=== PATIENT | female | born 1945 | race Two or more races ===

== ENCOUNTER 2017-07-30 10:57 | Emergency (ER) | payer OTHER ==
[2017-07-30 11:06] VITALS: TEMP 98.6
--- NOTE | 2017-07-30 11:15 | CPEKG ---
Heart Rate: 82 RR Interval: 732 P-R Interval: 108 QRSD Interval: 72 QT Interval: 376 QTC Interval: 439 P [place]: 55 QRS [place]: 13 T Wave [place]: 43 EKG Severity - BORDERLINE ECG - EKG Impression: SINUS RHYTHM Electronically Signed By: Ketan Waggoner 30-Jul-2017 15:22:46
[2017-07-30 13:42] VITALS: RESP 18
--- NOTE | 2017-07-30 13:46 | EDPHY ---
H & P Stated Complaint: fell walking/did not have her oxygen on/inj r knee/lac to lip Source: Patient Exam Limitations: No limitations - Personal History Current Tetanus/Diphtheria Vaccine: Unsure - Medical/Surgical History Hx Asthma: No Hx Chronic Respiratory Disease: No Hx Diabetes: No Hx Cardiac Disease: No Hx Renal Disease: No Hx Cirrhosis: No Hx Alcoholism: No Hx HIV/AIDS: No Hx Splenectomy or Spleen Trauma: No Other PMH: hx pneumonia, L hip replacement/shogrens - Social History Smoking Status: Never smoked Time Seen by Provider: 07/30/17 11:22 HPI/ROS: CHIEF COMPLAINT: Mechanical fall, lip laceration, left hand pain HISTORY OF PRESENT ILLNESS: The patient presents to the ED after mechanical fall. She fell forward and sustained a laceration above her upper lip. She complains of moderate pain and swelling to her left hand. The patient did not lose consciousness. She has no complaints of headache or neck pain. The patient denies chest pain, shortness of breath, abdominal pain or additional traumatic complaints. The patient has mild pain in her upper lip. She was wearing dentures. The patient denies any recent illness such as fever, cough or congestion. REVIEW OF SYSTEMS: A comprehensive 10 point review of systems is otherwise negative aside from elements mentioned in the history of present illness. (Ketan Waggoner) - Physical Exam Exam: General Appearance: Alert, no distress Head: 1 cm laceration above the upper lip Eyes: Pupils equal, round, reactive ENT, Mouth: No hemotympanum, no oral trauma Neck: Nontender, trachea midline Respiratory: No chest wall tender, subcutaneous air, lungs clear bilaterally Cardiovascular: Regular rate and rhythm Abdomen: Abdomen is soft and nontender, pelvis stable Skin: No lacerations, No abrasion Back: No midline T/L/S pain Extremities: Tenderness to palpation left hand Neurological: A&Ox3, normal motor function, normal sensory exam (Ketan Waggoner) Constitutional: Initial Vital Signs Temperature (C) 37 C 07/30/17 11:02 Heart Rate 90 07/30/17 11:02 Respiratory Rate 17 07/30/17 11:02 Blood Pressure 175/82 H 07/30/17 11:02 O2 Sat (%) 89 L 07/30/17 11:02 O2 Delivery Mode Nasal Cannula O2 (L/minute) 1.5 Allergies/Adverse Reactions: No Known Allergies Allergy (Verified 07/30/17 11:01) Home Medications: Medication Instructions Recorded Calcium 12/26/14 Losartan Potassium [Cozaar 25 mg 12/26/14 (*)] Medical Decision Making - Diagnostics EKG Interpretation: EKG: Complete interpretation has been separately recorded in the Trac[facility] archive. Summary impression: Sinus rhythm (Ketan Waggoner) Imaging Results: Imaging Impressions Hand X-Ray 07/30/17 11:49 Impression: Negative. No acute fracture. Procedures: I was asked by Dr. Ken Waggoner to repair facial laceration. Laceration repair. Verbal consent was obtained from the patient. The 2 cm laceration on the upper lip, above vermilion border was anesthetized using 1% lidocaine with epinephrine. The wound was irrigated with saline, draped and explored to its base with a gloved finger. There were no deep structures involved. The wound was repaired with 6 0 Prolene, 7 sutures. The wound repair was simple. The procedure was performed by myself. (Sasha Obando) ED Course/Re-evaluation: The patient presents to the ED with minor head injuries including a facial laceration following a mechanical fall. She has no evidence of a closed head injury. Her GCS is 15. She has no signs of a scalp hematoma. The patient has no midline cervical spine tenderness. The patient did have left hand tenderness without evidence of an obvious fracture noted on exam. The patient did have her facial laceration repaired by the physician sales service assistant under my supervision. The patient's EKG demonstrates no evidence of ischemia or arrhythmia. The patient will be instructed to return to the emergency department for any worsening headache, neck pain, new pain or other concerns. She will return for suture removal in 5 days. Tylenol and ibuprofen for pain as needed. (Ketan Waggoner) Differential Diagnosis: Differential diagnosis considered includes laceration, fracture, sprain (Ketan Waggoner) Departure - Departure Disposition: Home, Routine, Self-Care Clinical Impression: Facial laceration, Hand contusion Condition: Good Instructions: Laceration (ED) Additional Instructions: 1. Tylenol as needed for pain 2. Please return to the ED for suture removal in 5 days 3. Return to the ED for any severe headache, vomiting, abnormal behavior, new pain or other concerns. Referrals: Laura Fry MD [Primary Care Provider] - As per Instructions
[2017-07-30 14:07] VITALS: BP 170/74; PULSE 88; O2SAT 97
== END 2017-07-30 13:59 | disposition home or self-care (01) ==
PROC: 0CQ0XZZ Repair Upper Lip, External Approach (ICD-10-PCS; principal; 2017-07-30)
DX: S01.511A Laceration without foreign body of lip, initial encounter (principal); S60.222A Contusion of left hand, initial encounter; W18.39XA Other fall on same level, initial encounter; Y99.8 Other external cause status; Y93.01 Activity, walking, marching and hiking

== ENCOUNTER 2017-08-05 08:33 | Emergency (ER) | payer OTHER ==
--- NOTE | 2017-08-05 09:10 | EDPHY ---
H & P Stated Complaint: recheck wounds legs/swelling/rash/erythema Source: Patient, Family Exam Limitations: No limitations - Personal History Current Tetanus/Diphtheria Vaccine: Yes - Medical/Surgical History Hx Asthma: No Hx Chronic Respiratory Disease: No Hx Diabetes: No Hx Cardiac Disease: No Hx Renal Disease: No Hx Cirrhosis: No Hx Alcoholism: No Hx HIV/AIDS: No Hx Splenectomy or Spleen Trauma: No Other PMH: hx pneumonia, L hip replacement/shogrens - Social History Smoking Status: Never smoked HPI/ROS: CHIEF COMPLAINT: Left swelling, right knee redness HISTORY OF PRESENT ILLNESS: Patient presents with daughter and son at bedside. She complains of redness to the right knee with some pain and swelling. She also complains of rash to the left medial thigh and leg. She also has swelling of the lower extremities. Symptoms have been present for nearly a week since she fell. She was seen here and discharged home with instructions to follow up with primary care physician. She is not yet done this. The swelling has been gradually increasing. No chest pain of any kind. No shortness of breath or difficulty breathing. No fever or chills. The right knee is painful but she has full range of motion. No other associated complaints or modifying factors. Did start atorvastatin 1 month ago REVIEW OF SYSTEMS: Ten systems reviewed and are negative unless otherwise noted in the HPI PAST MEDICAL HISTORY: No diagnosis of congestive heart failure. Hypercholesterolemia and hypertension PAST SURGICAL HISTORY: Reviewed with patient SOCIAL HISTORY: Not occur. Lives with family FAMILY HISTORY: Noncontributory EXAMINATION General Appearance: Alert, no distress Head: normocephalic, atraumatic Eyes: Pupils equal and round, no conjunctival pallor or injection ENT, Mouth: Mucous membranes moist Neck: Normal inspection, supple, non-tender Respiratory: Lungs are clear to auscultation. No wheezing, rhonchi or crackles. Cardiovascular: Regular rate and rhythm. No murmur. Pulses intact distally in symmetrically Gastrointestinal: Abdomen is soft and nontender Back: non-tender, no bony abnormalities Neurological: GCS 15. A&O, nonfocal, strength symmetric in both limbs. Skin: Warm and dry. There is a petechial rash to the left leg from the mid thigh down to the mid calf. This is medially. There is some mild erythema to the right knee anterolaterally. No appreciable cellulitis. No appreciable abscess. There are some scabs over the right knee from superficial wounds. There is also healing laceration of the upper lip with suture removal today. Extremities: Mild tenderness of the right knee. Range of motion is fully intact and symmetric to the left knee. There is painless passive range of motion of the right knee. Minimal pain with active range of motion of the right knee. No evidence of septic joint. There is 2+ pitting edema of the lower extremities, right more so than left. Psychiatric: Mood and affect normal DIFFERENTIAL DIAGNOSES: Including but not limited to fluid overload, DVT, petechiae, atorvastatin reaction, rhabdomyolysis, MDM: 9:05 a.m. Lower extremity edema and petechial rash with some right knee pain and superficial cellulitis. I have ordered multiple laboratory studies, lower extremity ultrasounds, x-ray of the knee as well as a chest x-ray. Vital signs were well within normal limits. She is not SIRS criteria. She is in no acute distress. There is no evidence of septic joint. 10:20 a.m. Contacted by radiologist Dr. Rosen. Ultrasound of the lower extremity reveals edema but no DVT. Laboratory studies revealed a very mild leukocytopenia, creatinine of 1.1, mildly elevated BNP. There is mild elevation of CRP and ESR. Chest x-ray is pending. Vital signs stable. 11:30 a.m. Right lower extremity cellulitis without evidence of septic joint. There is also symmetric bilateral peripheral edema without any significant elevation of her BNP. EKG is unremarkable. Chest x-ray does show mild fluid presence. No significant pleural effusion or pneumonia. Patient has been evaluated by Dr. North and we are in agreement that the patient does not need to be admitted to the hospital. We will discharge her home with treatment of the right knee cellulitis. She is to follow up with primary care physician for the left leg rash and peripheral edema. She and her family are comfortable with this plan and she is discharged home in stable condition. (Austin Lovelace) Constitutional: Initial Vital Signs Temperature (C) 98.1 F 08/05/17 08:35 Heart Rate 77 08/05/17 08:35 Respiratory Rate 18 08/05/17 08:35 Blood Pressure 163/86 H 08/05/17 08:35 O2 Sat (%) 92 08/05/17 08:35 O2 Delivery Mode Room Air O2 (L/minute) 2 Allergies/Adverse Reactions: No Known Allergies Allergy (Verified 08/05/17 08:35) Home Medications: Medication Instructions Recorded Calcium 12/26/14 Losartan Potassium [Cozaar 25 mg 12/26/14 (*)] Cephalexin [Keflex (*)] 500 mg PO QID #40 cap 08/05/17 Sulfamethox/Tmp 800/160 mg 1 tab PO BID 10 Days 08/05/17 [Bactrim Ds] Medical Decision Making - Diagnostics Imaging Results: Imaging Impressions Chest X-Ray 08/05/17 09:07 Impression: 1. Features of acute congestive heart failure with pulmonary vascular prominence and subpulmonic right pleural effusion. 2. Multiple bilateral pulmonary nodules, at least 2 of which are new from a remote exam of 2013. These findings were discussed with Austin Lovelace PA-C, and reports the patient is undergoing diagnostic evaluation of pulmonary nodules at a [facility]. Extremity Venous Study 08/05/17 09:08 Impression: There is no sonographic evidence of deep or superficial venous thrombosis in either lower extremity. Findings were discussed with Austin Lovelace PA-C at 10:21 AM, on 08/05/2017. Knee X-Ray 08/05/17 09:09 Impression: Negative right knee radiographs. ED Course/Re-evaluation: I examine this patient had a long discussion with the family and discussion with Zaheer BADILLO. I agree with Zaheer is decision to start the patient on treatment for mild cellulitis of her right leg as an outpatient. She is well [facility]. She has no other acute problems in her family believes that she is feeling quite well and doing quite well otherwise. The only pertinent exam findings are mild cellulitis the right anterior maguire associated with a scab from a fall a few days ago. (Cordell North) - Data Points Laboratory Results: Laboratory Results 08/05/17 09:20 08/05/17 09:20 08/05/17 08/05/17 08/05/17 09:20 09:20 09:20 WBC 3.47 10^3/uL L 10^3/uL (3.80-9.50) RBC 3.31 10^6/uL L 10^6/uL (4.18-5.33) Hgb 10.3 g/dL L g/dL (12.6-16.3) Hct 32.1 % L % (38.0-47.0) MCV 97.0 fL fL (81.5-99.8) MCH 31.1 pg pg (27.9-34.1) MCHC 32.1 g/dL L g/dL (32.4-36.7) RDW 13.2 % % (11.5-15.2) Plt Count 162 10^3/uL 10^3/uL (150-400) MPV 9.5 fL fL (8.7-11.7) Neut % (Auto) 36.2 % L % (39.3-74.2) Lymph % (Auto) 46.1 % H % (15.0-45.0) Dillon % (Auto) 12.4 % % (4.5-13.0) Eos % (Auto) 3.5 % % (0.6-7.6) Baso % (Auto) 0.6 % % (0.3-1.7) Nucleat RBC Rel Count 0.0 % % (0.0-0.2) Absolute Neuts (auto) 1.26 10^3/uL L 10^3/uL (1.70-6.50) Absolute Lymphs (auto) 1.60 10^3/uL 10^3/uL (1.00-3.00) Absolute Monos (auto) 0.43 10^3/uL 10^3/uL (0.30-0.80) Absolute Eos (auto) 0.12 10^3/uL 10^3/uL (0.03-0.40) Absolute Basos (auto) 0.02 10^3/uL 10^3/uL (0.02-0.10) Absolute Nucleated RBC 0.00 10^3/uL 10^3/uL (0-0.01) Immature Gran % 1.2 % H % (0.0-1.1) Immature Gran # 0.04 10^3/uL 10^3/uL (0.00-0.10) ESR 58 MM/HR H MM/HR (0-30) PT 13.9 SEC SEC (12.0-15.0) INR 1.08 (0.83-1.16) APTT 28.5 SEC SEC (23.0-38.0) Sodium 136 mEq/L mEq/L (134-144) Potassium 4.0 mEq/L mEq/L (3.5-5.2) Chloride 102 mEq/L mEq/L (97-110) Carbon Dioxide 26 mEq/l mEq/l (22-31) Anion Gap 8 mEq/L mEq/L (8-16) BUN 18 mg/dL mg/dL (7-23) Creatinine 1.1 mg/dL H mg/dL (0.6-1.0) Estimated GFR 49 Glucose 85 mg/dL mg/dL (70-100) Calcium 9.3 mg/dL mg/dL (8.5-10.4) Total Bilirubin 0.9 mg/dL mg/dL (0.1-1.4) Conjugated Bilirubin 0.2 mg/dL mg/dL (0.0-0.5) Unconjugated Bilirubin 0.7 mg/dL mg/dL (0.0-1.1) AST 30 IU/L IU/L (14-46) ALT 34 IU/L IU/L (9-52) Alkaline Phosphatase 83 IU/L IU/L (38-126) Creatine Kinase < 20 IU/L IU/L (0-156) Troponin I < 0.012 ng/mL ng/mL (0.000-0.034) C-Reactive Protein 15.5 mg/L H mg/L (<10.0) NT-Pro-B Natriuret Pep 404 pg/mL H pg/mL (0-125) Total Protein 7.3 g/dL g/dL (6.3-8.2) Albumin 3.3 g/dL L g/dL (3.5-5.0) Lipase 67 IU/L IU/L (23-300) Departure - Departure Disposition: Home, Routine, Self-Care Clinical Impression: Cellulitis of leg without foot, right, Peripheral edema, Rash Condition: Good Instructions: Cellulitis (ED), Leg Edema (ED) Additional Instructions: 1. Antibiotics as prescribed to completion 2. Follow up with primary care physician for fluid retention and right skin infection 3. ED precautions as discussed Referrals: Laura Fry MD [Primary Care Provider] - As per Instructions Prescriptions: Cephalexin [Keflex (*)] 500 mg PO QID #40 cap Sulfamethox/Tmp 800/160 mg [Bactrim Ds] 1 tab PO BID 10 Days
--- NOTE | 2017-08-05 09:16 | CPEKG ---
Heart Rate: 75 RR Interval: 800 P-R Interval: 144 QRSD Interval: 78 QT Interval: 380 QTC Interval: 425 P [place]: 52 QRS [place]: 20 T Wave [place]: 51 EKG Severity - NORMAL ECG - EKG Impression: SINUS RHYTHM Electronically Signed By: Cordell North 05-Aug-2017 14:47:44
[2017-08-05 09:37] LABS: % IMMATURE GRANULYOCYTES 1.2 % (0.0-1.1); ABSOLUTE IMMATURE GRANULOCYTES 0.04 10^3/uL (0.00-0.10); ADD DIFF? NO; ADD MORPH? NO; ADD SCAN? NO; ATYPICAL LYMPHOCYTE FLAG 10 (0-99); FRAGMENT RBC FLAG 0 (0-99); HEMATOCRIT 32.1 % (38.0-47.0); HEMOGLOBIN 10.3 g/dL (12.6-16.3); LEFT SHIFT FLG 10 (0-99); LIPEMIA HEMOLYSIS FLAG 80 (0-99); MEAN CELL HEMOGLOBIN 31.1 pg (27.9-34.1); MEAN CELL HEMOGLOBIN CONCENTR. 32.1 g/dL (32.4-36.7); MEAN PLATELET VOLUME 9.5 fL (8.7-11.7); PLATELET CLUMPS FLAG 10 (0-99); PLATELET COUNT 162 10^3/uL (150-400); RED BLOOD CELL COUNT 3.31 10^6/uL (4.18-5.33); RED CELL DISTRIBUTION WIDTH 13.2 % (11.5-15.2)
[2017-08-05 09:43] LABS: INR 1.08 (0.83-1.16); PROTIME(PATIENT) 13.9 SEC (12.0-15.0)
[2017-08-05 09:44] LABS: APTT 28.5 SEC (23.0-38.0)
[2017-08-05 09:51] LABS: ALANINE AMINOTRANSFERASE 34 IU/L (9-52); ALBUMIN 3.3 g/dL (3.5-5.0); ALKALINE PHOSPHATASE 83 IU/L (38-126); ANION GAP 8 mEq/L (8-16); ASPARTATE AMINOTRANSFERASE 30 IU/L (14-46); BILIRUBIN,TOTAL 0.9 mg/dL (0.1-1.4); BILIRUBIN-CONJUGATED 0.2 mg/dL (0.0-0.5); BILIRUBIN-UNCONJUGATED 0.7 mg/dL (0.0-1.1); C-REACTIVE PROTEIN 15.5 mg/L (<10.0); CALCIUM 9.3 mg/dL (8.5-10.4); CARBON DIOXIDE 26 mEq/l (22-31); CHLORIDE 102 mEq/L (97-110); CREATININE 1.1 mg/dL (0.6-1.0); GLOMERULAR FILTRATION RATE 49; GLUCOSE 85 mg/dL (70-100); SODIUM 136 mEq/L (134-144); TOTAL PROTEIN 7.3 g/dL (6.3-8.2)
[2017-08-05 10:00] LABS: TROPONIN I < 0.012 ng/mL (0.000-0.034)
[2017-08-05 10:11] LABS: SEDIMENTATION RATE 58 MM/HR (0-30)
[2017-08-05 12:33] VITALS: BP 172/91; PULSE 66; RESP 18; TEMP 98.4; O2SAT 97
== END 2017-08-05 12:35 | disposition home or self-care (01) ==
DX: R60.0 Localized edema (principal); L03.115 Cellulitis of right lower limb

== ENCOUNTER 2017-08-14 17:11 | Inpatient (IN) | payer OTHER ==
--- NOTE | 2017-08-14 18:40 | EDPHY ---
HPI/HX/ROS/PE/MDM Narrative: CHIEF COMPLAINT: Difficulty breathing, rapid heart rate HISTORY OF PRESENT ILLNESS: The patient is a 71 y/o female arriving with her family member complaining of difficulty breathing and a rapid heart rate onset a few days ago. She was evaluated in our ED 9 days ago for knee pain and redness after a fall. A chest x-ray at that visit showed a pleural effusion and an extremity ultrasound was negative for DVT. She was discharged on Keflex and Bactrim and has one day left of her prescription. Those symptoms have improved. Per her daughter, she describes intermittent right-sided chest pain that radiates through to her back and worsened last night. She developed a fever today. No history of diabetes or blood clots. History obtained primarily from daughter who also translated for the patient. No chills, palpitations, vomiting, diarrhea, urinary complaints, headache, lightheadedness. REVIEW OF SYSTEMS: Aside from elements discussed in the HPI, a comprehensive 10-point review of systems was reviewed and is negative. 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 Lives with family. Originally from [facility]. Prior medical records reviewed including ED visit 08/04/17 for knee pain. VITAL SIGNS: Reviewed by me. Febrile 38.5C, BP 164/92, HR 106, SpO2 on RA was 85 %. GENERAL: Elderly, well-nourished, uncomfortable appearing, very tachypneic. HEENT: Atraumatic. Eyes: No icterus, no injection. Mouth: moist mucous membranes. No erythema or lesions. Neck: supple with no adenopathy. LUNGS: Crackles throughout, diminished at right base, tachypneic CARDIAC: Tachycardic rate and rhythm, no rubs, murmurs or gallops. ABDOMEN: Soft, nontender, nondistended, bowel sounds normal. BACK: No CVA tenderness. EXTREMITIES: No trauma. 1+ edema right leg, trace edema left leg. Range of motion is normal throughout. NEURO: Alert and oriented, grossly nonfocal. SKIN: Warm and dry, no rash. PSYCHIATRIC: Normal mentation, no agitation. Portions of this note were transcribed by a medical director/head team physician. I personally performed a history, physical exam, medical decision making, and confirmed accuracy of information the transcribed note. ED Course: Patient presents with tachypnea and fever complaining of worsening shortness of breath and rapid heart rate for the last few days. She has diffuse crackles on auscultation as well as diminished breath sounds on the right. IV established. Labs drawn including troponin, d-dimer, and lactate. UA ordered. Chest x-ray ordered. 1000mg PO Tylenol administered. The 12 lead EKG was interpreted by myself. Sinus rhythm rate 94. See hard copy and/or "tracemaster" electronic copy for interpretation. Chest x-ray shows right-sided pleural effusion. D-dimer is elevated. Chest CT pending. 750mg IV Levaquin administered. Chest CT shows right pleural effusion with some underlying compression. Patient will require admission. 2014: Spoke with hospitalist service. Dr. Brooks accepts admission. Severe Sepsis/Septic Shock Care Note The patient presents to the ED with pleural effusion, possible pneumonia, pulmonary infection. The patient did have evidence of sepsis. She did not meet criteria for severe sepsis. Patient did receive Levaquin 750 mg in the emergency department. It is unclear if patients primary pulmonary pathology is a pleural effusion with heart failure versus pleural effusion and potential pneumonia. Patient's course was discussed with Radiology and orders to obtain at thoracentesis under IR guidance was placed. MDM: Differential diagnosis for the patient's shortness of breath was considered including but not limited to pulmonary infectious processes, COPD exacerbation, pulmonary emboli, pulmonary edema, congestive heart failure, and cardiac causes. - Data Points Imaging Results: Imaging Impressions Chest X-Ray 08/14/17 18:22 Impression: Worsening small to moderate right pleural effusion and diffuse right lung airspace consolidation - possibly pneumonia. Circumferential right pleural thickening suggests underlying empyema versus neoplasm. CT chest with IV contrast would be helpful to further characterize. Chest/Thorax CTA 08/14/17 19:19 Impression: 1. Suboptimal study. The distal pulmonary arterial branches are poorly opacified with contrast and therefore cannot be evaluated. No large central pulmonary embolus, however. 2. New moderate right pleural effusion and right lower lobe and posterior upper lobe consolidations, likely atelectasis, less likely pneumonia. 3. Scattered calcified granulomas and large calcified pleural plaques, most which are unchanged. The largest plaque in the left anterior chest, however, has increased slightly in size since 2014. 4. Heterogenous left thyroid nodule, slightly increased since previous exam. Consider follow-up thyroid ultrasound. 5. Cardiomegaly. 6. Diverticulosis. Dr. Machado discussed these findings by telephone with Charisse Gasca MD at 1954 hours on 08/14/2017. Imaging: Discussed imaging studies w/ call center dispatcher Radiologist, I viewed and interpreted images myself Laboratory Results: Laboratory Results 08/14/17 18:30 08/14/17 18:30 08/14/17 08/14/17 08/14/17 18:30 18:30 18:30 WBC RBC Hgb Hct MCV MCH MCHC RDW Plt Count MPV Neut % (Auto) Lymph % (Auto) Mel[place] % (Auto) Eos % (Auto) Baso % (Auto) Nucleat RBC Rel Count Absolute Neuts (auto) Absolute Lymphs (auto) Absolute Monos (auto) Absolute Eos (auto) Absolute Basos (auto) Absolute Nucleated RBC Immature Gran % Immature Gran # PT 14.5 SEC SEC (12.0-15.0) INR 1.14 (0.83-1.16) APTT 31.4 SEC SEC (23.0-38.0) D-Dimer 2.35 ug/mLFEU H ug/mLFEU (0.00-0.50) VBG Lactic Acid Sodium 128 mEq/L L mEq/L (134-144) Potassium 5.6 mEq/L H mEq/L (3.5-5.2) Chloride 100 mEq/L mEq/L (97-110) Carbon Dioxide 19 mEq/l L mEq/l (22-31) Anion Gap 9 mEq/L mEq/L (8-16) BUN 22 mg/dL mg/dL (7-23) Creatinine 1.3 mg/dL H mg/dL (0.6-1.0) Estimated GFR 40 Glucose 110 mg/dL H mg/dL (70-100) Calcium 9.0 mg/dL mg/dL (8.5-10.4) Total Bilirubin 0.5 mg/dL mg/dL (0.1-1.4) Lactate Dehydrogenase 708 IU/L H IU/L (313-618) Troponin I < 0.012 ng/mL ng/mL (0.000-0.034) NT-Pro-B Natriuret Pep 827 pg/mL H pg/mL (0-125) 08/14/17 08/14/17 18:30 18:30 WBC 5.25 10^3/uL 10^3/uL (3.80-9.50) RBC 2.96 10^6/uL L 10^6/uL (4.18-5.33) Hgb 9.2 g/dL L g/dL (12.6-16.3) Hct 28.1 % L % (38.0-47.0) MCV 94.9 fL fL (81.5-99.8) MCH 31.1 pg pg (27.9-34.1) MCHC 32.7 g/dL g/dL (32.4-36.7) RDW 13.0 % % (11.5-15.2) Plt Count 230 10^3/uL 10^3/uL (150-400) MPV 9.5 fL fL (8.7-11.7) Neut % (Auto) 42.9 % % (39.3-74.2) Lymph % (Auto) 38.1 % % (15.0-45.0) Mel[place] % (Auto) 15.2 % H % (4.5-13.0) Eos % (Auto) 2.1 % % (0.6-7.6) Baso % (Auto) 0.4 % % (0.3-1.7) Nucleat RBC Rel Count 0.0 % % (0.0-0.2) Absolute Neuts (auto) 2.25 10^3/uL 10^3/uL (1.70-6.50) Absolute Lymphs (auto) 2.00 10^3/uL 10^3/uL (1.00-3.00) Absolute Monos (auto) 0.80 10^3/uL 10^3/uL (0.30-0.80) Absolute Eos (auto) 0.11 10^3/uL 10^3/uL (0.03-0.40) Absolute Basos (auto) 0.02 10^3/uL 10^3/uL (0.02-0.10) Absolute Nucleated RBC 0.00 10^3/uL 10^3/uL (0-0.01) Immature Gran % 1.3 % H % (0.0-1.1) Immature Gran # 0.07 10^3/uL 10^3/uL (0.00-0.10) PT INR APTT D-Dimer VBG Lactic Acid 0.8 mmol/L mmol/L (0.7-2.1) Sodium Potassium Chloride Carbon Dioxide Anion Gap BUN Creatinine Estimated GFR Glucose Calcium Total Bilirubin Lactate Dehydrogenase Troponin I NT-Pro-B Natriuret Pep Medications Given: Discontinued Medications Acetaminophen (Tylenol) 1,000 mg PO EDNOW ONE Stop: 08/14/17 19:21 Last Admin: 08/14/17 20:04 Dose: 1,000 mg Levofloxacin/Dextrose (Levaquin 750 Mg (Premix)) 150 mls @ 100 mls/hr IV EDNOW ONE PRN Reason: Protocol Stop: 08/14/17 20:41 Last Admin: 08/14/17 19:57 Dose: 150 mls General Time Seen by Provider: 08/14/17 18:07 Initial Vital Signs: Initial Vital Signs Temperature (C) 38.5 C H 08/14/17 17:12 Heart Rate 106 H 08/14/17 17:12 Respiratory Rate 18 08/14/17 17:12 Blood Pressure 164/92 H 08/14/17 17:12 O2 Sat (%) 85 L 08/14/17 17:12 O2 Delivery Mode Nasal Cannula O2 (L/minute) 2 Allergies/Adverse Reactions: No Known Allergies Allergy (Verified 08/05/17 08:35) Home Medications: Medication Instructions Recorded Atorvastatin Calcium [Lipitor 40 40 mg PO DAILY 08/14/17 mg (*)] Calcium Carb W/Vit D [Calcium Carb 500 mg PO DAILY 08/14/17 W/Vit D 500/200 (*)] Cephalexin [Keflex (*)] 500 mg PO QID 08/14/17 Hydrochlorothiazide [HCTZ (*)] 50 mg PO DAILY 08/14/17 Losartan Potassium [Cozaar] 100 mg PO DAILY 08/14/17 Sulfamethox/Tmp 800/160 mg 1 tab PO BID 08/14/17 [Bactrim DS] Departure - Departure Disposition: [facility] Clinical Impression: Tachypnea, Pleural effusion Pneumonia Qualifiers: Pneumonia type: due to unspecified organism Laterality: right Lung location: middle lobe of lung Qualified Code(s): J18.1 - Lobar pneumonia, unspecified organism Fever Qualifiers: Fever type: due to other condition Qualified Code(s): R50.81 - Fever presenting with conditions classified elsewhere Condition: Fair Report Scribed for: Charisse Gasca Report Scribed by: Carey Stewart Date of Report: 08/14/17 Time of Report: 18:49
[2017-08-14 18:45] LABS: % IMMATURE GRANULYOCYTES 1.3 % (0.0-1.1); ABSOLUTE IMMATURE GRANULOCYTES 0.07 10^3/uL (0.00-0.10); ADD DIFF? NO; ADD MORPH? NO; ADD SCAN? NO; ATYPICAL LYMPHOCYTE FLAG 40 (0-99); FRAGMENT RBC FLAG 0 (0-99); HEMATOCRIT 28.1 % (38.0-47.0); HEMOGLOBIN 9.2 g/dL (12.6-16.3); LEFT SHIFT FLG 10 (0-99); LIPEMIA HEMOLYSIS FLAG 80 (0-99); MEAN CELL HEMOGLOBIN 31.1 pg (27.9-34.1); MEAN CELL HEMOGLOBIN CONCENTR. 32.7 g/dL (32.4-36.7); MEAN CELL VOLUME 94.9 fL (81.5-99.8); MEAN PLATELET VOLUME 9.5 fL (8.7-11.7); PLATELET CLUMPS FLAG 0 (0-99); PLATELET COUNT 230 10^3/uL (150-400); RED BLOOD CELL COUNT 2.96 10^6/uL (4.18-5.33)
[2017-08-14 18:51] LABS: INR 1.14 (0.83-1.16); PROTIME(PATIENT) 14.5 SEC (12.0-15.0)
[2017-08-14 18:52] LABS: APTT 31.4 SEC (23.0-38.0)
[2017-08-14 18:54] LABS: ANION GAP 9 mEq/L (8-16); BILIRUBIN,TOTAL 0.5 mg/dL (0.1-1.4); CARBON DIOXIDE 19 mEq/l (22-31); CHLORIDE 100 mEq/L (97-110); CREATININE 1.3 mg/dL (0.6-1.0); GLOMERULAR FILTRATION RATE 40; GLUCOSE 110 mg/dL (70-100); POTASSIUM 5.6 mEq/L (3.5-5.2); SODIUM 128 mEq/L (134-144)
[2017-08-14 19:04] LABS: TROPONIN I < 0.012 ng/mL (0.000-0.034)
[2017-08-14] MEDS ORDERED: ACETAMINOPHEN 500 MG TAB PO ONE (19:20)
[2017-08-14] MEDS ORDERED: IOPAMIDOL (ISOVUE 370) 100 ML BTL IV ONE (19:22)
[2017-08-14] MEDS ORDERED: ONDANSETRON DISINTEGRATING 4 MG TAB PO PRN (20:14)
[2017-08-14] MEDS ORDERED: ACETAMINOPHEN 325 MG TAB PO PRN (20:14)
[2017-08-14] MEDS ORDERED: ONDANSETRON 4 MG/2 ML VIAL IVP PRN (20:14)
--- NOTE | 2017-08-14 20:54 | CPEKG ---
Heart Rate: 94 RR Interval: 638 P-R Interval: 136 QRSD Interval: 64 QT Interval: 344 QTC Interval: 431 P [place]: 44 QRS [place]: 25 T Wave [place]: 40 EKG Severity - NORMAL ECG - EKG Impression: SINUS RHYTHM Electronically Signed By: Nehemiah Medina 15-Aug-2017 12:19:27
[2017-08-14 22:44] LABS: LACTATE DEHYDROGENASE 708 IU/L (313-618)
[2017-08-15] MEDS ORDERED: NS 500 ML IV ONE ×2 (00:25→04:47)
[2017-08-15 01:07] LABS: COLOR PALE YELLOW; LEUKOCYTE ESTERASE,URINE NEGATIVE (NEGATIVE); NITRITE,URINE NEGATIVE (NEGATIVE)
[2017-08-15 01:14] LABS: MUCUS TRACE /lpf (NONE-1+); RBC,URINE 15-25 /hpf (0-3)
[2017-08-15 03:18] LABS: ANION GAP 8 mEq/L (8-16); CALCIUM 8.3 mg/dL (8.5-10.4); CARBON DIOXIDE 21 mEq/l (22-31); CHLORIDE 105 mEq/L (97-110); CREATININE 1.2 mg/dL (0.6-1.0); GLOMERULAR FILTRATION RATE 44; GLUCOSE 87 mg/dL (70-100); POTASSIUM 5.2 mEq/L (3.5-5.2); SODIUM 134 mEq/L (134-144)
--- NOTE | 2017-08-15 04:52 | PDGENHP ---
History and Physical - Chief Complaint Shortness of breath - History of Present Illness 71 yo F w/ hx of HTN and unclear lung disease presents with several days of shortness of breath and fever. Patient fell 2 weeks ago and came to ED. She received a few stitches above her upper lip. She then came back a few days later to have the stitches removed. At that time she had signs of mild RLE cellulitis at site of a scrape from the same fall so she was given Bactrim and Keflex for cellulitis. Then, over the last 2-3 days, patient began to experience progressive shortness of breath as well as fever. That is when she decided to come to the ED. Patient speaks little Urdu and most of the history was obtained from her daughter. Daughter explains that patient is followed at [facility] for unspecified lung disease. She says she has been told it may be autoimmune. In fact, she underwent a lymph node biopsy 2 weeks ago that was reportedly normal. She wears 2 L/min O2 continuously for this. History Information - Allergies/Home Medication List Allergies/Adverse Reactions: No Known Allergies Allergy (Verified 08/05/17 08:35) Home Medications: Atorvastatin Calcium [Lipitor 40 mg (*)] 40 mg PO DAILY 08/14/17 [Last Taken 04/16] Calcium Carb W/Vit D [Calcium Carb W/Vit D 500/200 (*)] 500 mg PO DAILY [Last Taken Unknown] Cephalexin [Keflex (*)] 500 mg PO QID 08/14/17 [Last Taken 08/14/17] Hydrochlorothiazide [HCTZ (*)] 50 mg PO DAILY 08/14/17 [Last Taken 08/14/17] Losartan Potassium [Cozaar] 100 mg PO DAILY 08/14/17 [Last Taken 08/14/17] Sulfamethox/Tmp 800/160 mg [Bactrim DS] 1 tab PO BID 08/14/17 [Last Taken ] I have personally reviewed and updated: family history, medical history - Past Medical History hypertension Additional medical history: ?Autoimmune lung disease - Surgical History Additional surgical history: Recent lymph node biopsy at [facility] - Family History Additional family history: Asked, denies knowledge of any family history - Social History Smoking Status: Never smoked Alcohol Use: None Drug Use: None Review of Systems Review of Systems: ROS: 10pt was reviewed & negative except for what was stated in HPI & below Physical Exam Physical Exam: Temp Pulse Resp BP Pulse Ox 37.0 C 81 22 H 148/73 H 98 08/15/17 04:00 08/15/17 04:00 08/15/17 04:00 08/15/17 04:00 08/15/17 04:00 O2 (L/minute) 3 Constitutional: no apparent distress, appears nourished Eyes: PERRL, EOMI Ears, Nose, Mouth, Throat: moist mucous membranes, no oral mucosal ulcers Cardiovascular: regular rate and rhythym, no murmur, rub, or gallop Respiratory: no respiratory distress, inspiratory crackles (Bilateral, R>L), other (Decreased BS @ R base) Skin: warm, normal color Musculoskeletal: full muscle strength, no muscle tenderness Neurologic: AAOx3, CN II-XII Intact Psychiatric: interacting appropriately, not anxious Lab Data & Imaging Review 08/14/17 18:30 08/15/17 02:32 WBC 5.25 10^3/uL (3.80-9.50) 08/14/17 18:30 RBC 2.96 10^6/uL (4.18-5.33) L 08/14/17 18:30 Hgb 9.2 g/dL (12.6-16.3) L 08/14/17 18:30 Hct 28.1 % (38.0-47.0) L 08/14/17 18:30 MCV 94.9 fL (81.5-99.8) 08/14/17 18:30 MCH 31.1 pg (27.9-34.1) 08/14/17 18:30 MCHC 32.7 g/dL (32.4-36.7) 08/14/17 18:30 RDW 13.0 % (11.5-15.2) 08/14/17 18:30 Plt Count 230 10^3/uL (150-400) 08/14/17 18:30 MPV 9.5 fL (8.7-11.7) 08/14/17 18:30 Neut % (Auto) 42.9 % (39.3-74.2) 08/14/17 18:30 Lymph % (Auto) 38.1 % (15.0-45.0) 08/14/17 18:30 [place] % (Auto) 15.2 % (4.5-13.0) H 08/14/17 18:30 Eos % (Auto) 2.1 % (0.6-7.6) 08/14/17 18:30 Baso % (Auto) 0.4 % (0.3-1.7) 08/14/17 18:30 Nucleat RBC Rel Count 0.0 % (0.0-0.2) 08/14/17 18:30 Absolute Neuts (auto) 2.25 10^3/uL (1.70-6.50) 08/14/17 18:30 Absolute Lymphs (auto) 2.00 10^3/uL (1.00-3.00) 08/14/17 18:30 Absolute Monos (auto) 0.80 10^3/uL (0.30-0.80) 08/14/17 18:30 Absolute Eos (auto) 0.11 10^3/uL (0.03-0.40) 08/14/17 18:30 Absolute Basos (auto) 0.02 10^3/uL (0.02-0.10) 08/14/17 18:30 Absolute Nucleated RBC 0.00 10^3/uL (0-0.01) 08/14/17 18:30 Immature Gran % 1.3 % (0.0-1.1) H 08/14/17 18:30 Immature Gran # 0.07 10^3/uL (0.00-0.10) 08/14/17 18:30 PT 14.5 SEC (12.0-15.0) 08/14/17 18:30 INR 1.14 (0.83-1.16) 08/14/17 18:30 APTT 31.4 SEC (23.0-38.0) 08/14/17 18:30 D-Dimer 2.35 ug/mLFEU (0.00-0.50) H 08/14/17 18:30 VBG Lactic Acid 0.8 mmol/L (0.7-2.1) 08/14/17 18:30 Sodium 134 mEq/L (134-144) 08/15/17 02:32 Potassium 5.2 mEq/L (3.5-5.2) 08/15/17 02:32 Chloride 105 mEq/L (97-110) 08/15/17 02:32 Carbon Dioxide 21 mEq/l (22-31) L 08/15/17 02:32 Anion Gap 8 mEq/L (8-16) 08/15/17 02:32 BUN 18 mg/dL (7-23) 08/15/17 02:32 Creatinine 1.2 mg/dL (0.6-1.0) H 08/15/17 02:32 Estimated GFR 44 08/15/17 02:32 Glucose 87 mg/dL (70-100) 08/15/17 02:32 Calcium 8.3 mg/dL (8.5-10.4) L 08/15/17 02:32 Total Bilirubin 0.5 mg/dL (0.1-1.4) 08/14/17 18:30 Lactate Dehydrogenase 708 IU/L (313-618) H 08/14/17 18:30 Troponin I < 0.012 ng/mL (0.000-0.034) 08/14/17 18:30 NT-Pro-B Natriuret Pep 827 pg/mL (0-125) H 08/14/17 18:30 Urine Color PALE YELLOW 08/15/17 00:50 Urine Appearance CLEAR 08/15/17 00:50 Urine pH 6.0 (5.0-7.5) 08/15/17 00:50 Ur Specific [place] 1.024 (1.002-1.030) 08/15/17 00:50 Urine Protein NEGATIVE (NEGATIVE) 08/15/17 00:50 Urine Ketones NEGATIVE (NEGATIVE) 08/15/17 00:50 Urine Blood 2+ (NEGATIVE) H 08/15/17 00:50 Urine Nitrate NEGATIVE (NEGATIVE) 08/15/17 00:50 Urine Bilirubin NEGATIVE (NEGATIVE) 08/15/17 00:50 Urine Urobilinogen NEGATIVE EU (0.2-1.0) 08/15/17 00:50 Ur Leukocyte Esterase NEGATIVE (NEGATIVE) 08/15/17 00:50 Urine RBC 15-25 /hpf (0-3) H 08/15/17 00:50 Urine WBC 1-3 /hpf (0-3) 08/15/17 00:50 Ur Epithelial Cells TRACE /lpf (NONE-1+) 08/15/17 00:50 Urine Mucus TRACE /lpf (NONE-1+) 08/15/17 00:50 Urine Glucose NEGATIVE (NEGATIVE) 08/15/17 00:50 Imaging Review: CTA without PE but notable for new R pleural effusion, consolidation ( atelectasis vs. pneumonia), granulomas and calcified plaques, which may have progressed from 2014 comparison. Visualized and Interpreted EKG results: Yes EKG Interpretation: Positive for: normal sinsus rhythm Assessment & Plan Assessment: 71 yo F w/ hx of HTN and ?AI lung disease presents with subjective fever, SOB, and found to have new R pleural effusion. Plan: 1. Pleural effusion - Unclear etiology, possibly parapneumonic but could also be related to unspecified pulmonary disease that she is seen at [facility] for. Daughter has been told it may be autoimmune. Pleural plaques also bring up the possibility of malignancy. She had recent lymph node biopsy at [facility] that was reportedly normal. - Obtain [facility] records - Thoracentesis per IR ordered, including cytology - S/p levofloxacin in ED, will continue noting subjective fevers and lung consolidation (dosed q48h for GFR) 2. MARIAM/CKD - Cr 1.3 on admission, which is very near previous values. Suspect some of this may be related to Bactrim prescribed for recent RLE cellulitis. Improving with IVF. - Give additional 500 mL IVF 3. Hyperkalemia - Likely multifactorial from mild MARIAM and Bactrim. Improving with IVF, monitor BMP. 4. CHRF - 2/2 unclear hx of ?AI lung disease. Wears 2 L/min O2 continuously at baseline. Appears to be at baseline currently. 5. Hyponatremia - Hypovolemic, resolving with IVF. 6. HTN - Patient on Losartan and HCTZ as outpatient. 7. Normocytic anemia - Will send iron panel; anemia or chronic inflammation vs. TROY. Diet - Regular Code - Full Ppx - SCDs Dispo - Admit to inpatient noting need for IV therapies and further work-up
[2017-08-15 05:53] LABS: ADD DIFF? YES; ADD MORPH? NO; ADD SCAN? NO; ATYPICAL LYMPHOCYTE FLAG 20 (0-99); FRAGMENT RBC FLAG 0 (0-99); HEMATOCRIT 25.5 % (38.0-47.0); HEMOGLOBIN 8.2 g/dL (12.6-16.3); LEFT SHIFT FLG 10 (0-99); LIPEMIA HEMOLYSIS FLAG 80 (0-99); MEAN CELL HEMOGLOBIN 30.3 pg (27.9-34.1); MEAN CELL HEMOGLOBIN CONCENTR. 32.2 g/dL (32.4-36.7); MEAN CELL VOLUME 94.1 fL (81.5-99.8); PLATELET CLUMPS FLAG 0 (0-99); PLATELET COUNT 194 10^3/uL (150-400); RED BLOOD CELL COUNT 2.71 10^6/uL (4.18-5.33); RED CELL DISTRIBUTION WIDTH 12.9 % (11.5-15.2)
[2017-08-15 06:18] LABS: ANION GAP 6 mEq/L (8-16); CALCIUM 8.8 mg/dL (8.5-10.4); CARBON DIOXIDE 21 mEq/l (22-31); CHLORIDE 105 mEq/L (97-110); CREATININE 1.2 mg/dL (0.6-1.0); GLOMERULAR FILTRATION RATE 44; GLUCOSE 85 mg/dL (70-100); SODIUM 132 mEq/L (134-144)
[2017-08-15 06:27] LABS: % SATURATION 13 % (20-55); TOTAL IRON BINDING CAPACITY 211 ug/dL (260-490)
[2017-08-15 07:10] LABS: PLATELET ESTIMATE ADEQUATE (ADEQ)
[2017-08-15] MEDS ORDERED: ENOXAPARIN 40 MG/0.4 ML SYR SC SCH (09:00)
[2017-08-15] MEDS ORDERED: LIDOCAINE 1% 300 MG/30 ML SDV ONE (09:36)
--- NOTE | 2017-08-15 09:54 | HOSPPROG ---
Hospitalist Progress Note Assessment/Plan: # dyspnea, acute on chronic - d/t underlying lung disease, possibly worse d/t pleural effusion # underlying lung disease with calcified granulomas, pleural plaques, pleural effusion - unclear dx at this point, followed [facility] - try to get [facility] records (recent bx) - thoracentesis today, barbara for studies, cytology - will d/w pulm # fever - cont empiric tx for possible CAP; check ESR, crp, pct - BCx pending # hypoNa - better with IVF # anemia - most c/w chronic disease # recent cellulitis - appears resolved; stop abx for this # htn - hctz, lisinopril Subjective: still SOB Objective: Vital Signs Temp Pulse Resp BP Pulse Ox 37.1 C 85 17 149/72 H 95 08/15/17 08:00 08/15/17 08:00 08/15/17 08:00 08/15/17 08:00 08/15/17 08:00 Laboratory Results 08/15/17 05:39 08/15/17 05:39 08/14/17 08/15/17 08/16/17 05:59 05:59 05:59 Intake Total 1450 Output Total 1200 Balance 250 PT 14.5 SEC (12.0-15.0) 08/14/17 18:30 INR 1.14 (0.83-1.16) 08/14/17 18:[address] personally reviewed - Physical Exam Constitutional: no apparent distress, appears nourished Cardiovascular: regular rate and rhythym, no murmur, rub, or gallop Respiratory: other (mild resp distress; L base crackels; diminished R sided BS) Gastrointestinal: normoactive bowel sounds, soft, non-tender abdomen ICD10 Worksheet Patient Problems: Problems Problem Status Onset Fever Acute Pleural effusion Acute Pneumonia Acute Tachypnea Acute
[2017-08-15 11:39] LABS: HEMATOCRIT 25.2 % (38.0-47.0)
[2017-08-15 11:42] LABS: C-REACTIVE PROTEIN 83.5 mg/L (<10.0)
[2017-08-15 13:16] LABS: PROCALCITONIN 0.08 ng/mL (0.02-0.10)
[2017-08-15 13:36] LABS: LD, PLEURAL FLUID 1215 IU/L
[2017-08-15] MEDS: LOSARTAN POTASSIUM 50 MG TAB PO SCH (14:04)
[2017-08-15] MEDS: ATORVASTATIN CALCIUM 40 MG TAB PO SCH (14:05)
[2017-08-15] MEDS: HYDROCHLOROTHIAZIDE 50 MG TAB PO SCH (14:44)
[2017-08-16] MEDS ORDERED: HYDROCHLOROTHIAZIDE 50 MG TAB PO SCH (09:00)
[2017-08-16] MEDS ORDERED: ATORVASTATIN CALCIUM 40 MG TAB PO SCH (09:00)
[2017-08-16] MEDS ORDERED: NON-FORMULARY NEW DRUG (Losartan Potassium [Cozaar] 100 MG) PO SCH (09:00)
[2017-08-16] MEDS ORDERED: ENOXAPARIN 40 MG/0.4 ML SYR SC SCH (09:00)
[2017-08-16] MEDS: LOSARTAN POTASSIUM 50 MG TAB PO SCH (09:39)
[2017-08-16] MEDS: HYDROCHLOROTHIAZIDE 50 MG TAB PO SCH (09:39)
[2017-08-16] MEDS: ATORVASTATIN CALCIUM 40 MG TAB PO SCH (10:05)
[2017-08-16 10:10] LABS: % IMMATURE GRANULYOCYTES 1.1 % (0.0-1.1); ABSOLUTE IMMATURE GRANULOCYTES 0.04 10^3/uL (0.00-0.10); ADD DIFF? NO; ADD MORPH? NO; ADD SCAN? NO; ATYPICAL LYMPHOCYTE FLAG 20 (0-99); FRAGMENT RBC FLAG 0 (0-99); HEMATOCRIT 26.4 % (38.0-47.0); HEMOGLOBIN 8.7 g/dL (12.6-16.3); LEFT SHIFT FLG 10 (0-99); LIPEMIA HEMOLYSIS FLAG 80 (0-99); MEAN CELL HEMOGLOBIN 31.2 pg (27.9-34.1); MEAN CELL VOLUME 94.6 fL (81.5-99.8); PLATELET CLUMPS FLAG 0 (0-99); PLATELET COUNT 225 10^3/uL (150-400); RED BLOOD CELL COUNT 2.79 10^6/uL (4.18-5.33); RED CELL DISTRIBUTION WIDTH 12.8 % (11.5-15.2)
[2017-08-16 10:27] LABS: ANION GAP 8 mEq/L (8-16); CALCIUM 8.9 mg/dL (8.5-10.4); CARBON DIOXIDE 20 mEq/l (22-31); CHLORIDE 107 mEq/L (97-110); CREATININE 1.1 mg/dL (0.6-1.0); GLOMERULAR FILTRATION RATE 49; GLUCOSE 138 mg/dL (70-100); POTASSIUM 4.6 mEq/L (3.5-5.2); SODIUM 135 mEq/L (134-144)
--- NOTE | 2017-08-16 11:58 | ASMTCMCOM ---
CM Note CM Note Notes: Pt. is a 71-year-old woman admitted with a fever, pleural effusion, r/o PNA, and tachypnea. Pt. on home O2, followed at [facility] for lung disease. Pt. is originally from [place] and speaks Urdu per report. SWer met w/ daughter Ml briefly today. Ml speaks fluent Armenian. Ml states her mother has a green card, but is not yet eligible for Medicare or Medicaid. On CICP and WE CARE programs. No PT/OT ordered. Anticipate independent d/c when ready. CM available if d/c POC changes. Date Signed: 08/16/2017 11:57 AM Electronically Signed By:Marline Stokes LCSW
[2017-08-16 16:33] VITALS: BP 150/83; PULSE 91; RESP 18; TEMP 99.3; O2SAT 97
--- NOTE | 2017-08-16 18:48 | GCON ---
[f rep st] CONSULTATION PULMONARY/CRITICAL CARE CONSULTATION DATE OF CONSULTATION: 08/16/2017 REFERRING PHYSICIAN: Melvin Hastings MD REASON FOR REFERRAL: Evaluation and management of pulmonary infiltrates and pleural effusion. HISTORY OF PRESENT ILLNESS: The patient is a 71-year-old [place] woman, who has a history of inter stitial lung disease that has not been completely characterize/diagnosed. She has been evaluated at [facility], most recently in July, at which time they were considering diagnoses including lym phocytic interstitial pneumonia/Sjogren's, as well as pulmonary emboli. She had a known history of a stable elevated right diaphragm, as well as some multifocal partially calcified nodules and masses, and small cysts, which apparently remained fairly stable compared to prior imaging. She also had res trictive physiology on pulmonary function tests. She had a bronchoscopy with biopsies in July. Cu ltures grew Pseudomonas that was fairly pansensitive, as well as Aspergillus. She was not treated fo r this. Apparently, biopsies were done and the family received a phone call saying that the biopsy w as unremarkable. She was admitted to the hospital here 2 days ago with increased shortness of breath . Upon admission here, she was found there is to have a large pleural effusion. A thoracentesis was done yesterday. She was also placed on Levaquin. She reports through her daughter, (acting as sal slator), that her breathing has improved with improved ability to take a deep breath, although this i s not back to baseline for her. She has no significant cough. She has not had a fever. PAST MEDICAL HISTORY: 1. Hypertension. 2. Interstitial lung disease, as above. MEDICATIONS: At the time of admission include Keflex, Lipitor, Cozaar, hydrochlorothiazide, and Bact rim. ALLERGIES: None. SOCIAL HISTORY: The patient is originally from [facility]. She stays here with family. She never smo ked and denies alcohol use. FAMILY HISTORY: Negative. REVIEW OF SYSTEMS: A 10-point review of systems adds nothing to the History of Present Illness. PHYSICAL EXAMINATION: GENERAL: The patient is awake, alert, in no acute distress. VITAL SIGNS: Bl ood pressure is 150/83, with a heart rate of 91, she is afebrile. Oxygen saturations are 97% on 2 L. She is afebrile today, but had a fever of 38.5 yesterday. HEENT: Normocephalic and atraumatic. N o icterus. NECK: No JVD. Trachea is midline. CHEST: She has decreased breath sounds on the right base and rales in the left base. CARDIAC: Regular rate and rhythm without murmur. ABDOMEN: Soft, nontender. Bowel sounds are present. EXTREMITIES: No clubbing, cyanosis, or edema. NEURO: The p denis's cranial nerves are grossly intact. She has no focal motor or sensory deficits. LABORATORY DATA: A white blood count is 3.6, hemoglobin is 8.7, down from 9.2 at admission. She has normal white blood cell count differential. Her chemistry group is remarkable for a creatinine of 1 .1. Carbon dioxide level is 20. BNP is 827. Procalcitonin is 0.08. A CT scan of the chest shows a n elevated right diaphragm that is chronic. She has scattered partially calcified nodules, several o f which are pleural-based bilaterally. She has no pulmonary embolism that is seen. She has a modera te-sized pleural effusion and some atelectasis in the base, but also appears to have some consolidati on. The airways are in the right lower, more so than left lower, of small caliber, and she has some distal occlusions of her airways on the right. Fluid from the 700 cc right thoracentesis was serosan guineous. Chemistries are consistent with an exudate with an LDH of 1215. AFB stain is negative. B acterial stain and cultures are negative. ASSESSMENT: Right pleural effusion. This is exudative. The patient did have some fever and has a r ecent sputum culture positive for both Pseudomonas and Aspergillus. She does not have significant im munosuppression that would make it likely that the Aspergillus is invasive. Her procalcitonin is low . Nonetheless, but fever positive, positive bronchoscopy culture, and consolidation seen on CT (whic h could be atelectasis or consolidation/pneumonia), I would favor continuing the course of Levaquin t hat she has begun to complete a 7 day course. Her BNP is low, and with the elevated LDH, this makes congestive heart failure much less likely. Lymphangitic spread of pulmonary malignancy is possible, but less likely. Cytology is pending and apparently no significant abnormalities were found on the b ronchoscopy to suggest this. RECOMMENDATIONS: 1. Complete course of Levaquin. 2. Await results from cytology. 3. Recheck chest x-ray in 1 week to ensure that the fluid is not reaccumulating rapidly. 4. Keep scheduled appointment at [facility] in 2 to 3 weeks. I have asked the patient's daught er to make sure they got a copy of the CT scan on CD so that it could be compared to recent imaging d one at [facility]. /[id number]/MODL
--- NOTE | 2017-08-17 05:04 | GDS ---
[f rep st] DISCHARGE SUMMARY FINAL DIAGNOSES: 1. Interstitial lung disease, not fully characterized. 2. Pleural effusion. 3. Acute on chronic respiratory failure. 4. Fever. 5. Hyponatremia. 6. Anemia. 7. Recent cellulitis. 8. Hypertension. HOSPITAL COURSE: This is a 71-year-old female with a not fully characterized interstitial lung disease, presents with a new pleural effusion and seemingly worsening infiltrates on her CT scan. She underwent a thoracentesis. Her dyspnea has improved. She does have an oxygen requirement at baseline. She is followed at [facility] for possible interstitial lung disease. Differential including LIP versus Sjogren's. She had a recent bronchoscopy there on July 22. I reviewed results from this. There was no pathology, however. She did grow out Aspergillus as well as Pseudomonas which was pansensitive. She was not treated for that. Because she had a fever as well as new/changing infiltrates, she had been started on Levaquin. This would cover the Pseudomonas, which was isolated in [facility] as well as other community-acquired pathogens. Dr. Monzon has seen her in consultation and recommends 1-week's worth of Levaquin to cover possible pneumonia. Also, recommends a chest x-ray 1 week following discharge, which she will order. This is to assure that her pleural effusion has not re- accumulated. She is discharged in stable condition. FOLLOW UP: Close followup with [facility]. STUDIES PENDING AT TIME OF DISCHARGE: 1. Blood culture. 2. Pleural fluid culture. 3. Mycobacterial smear and culture. 4. Pleural fluid cytology TIME SPENT: I spent more than 30 minutes on the day of discharge coordinating care. /[id number]/MODL ELIZABETH
--- NOTE | 2017-08-17 10:58 | ASDISCHSUM ---
Discharge Information Plan Status:Home with No Needs Medically Cleared to Leave:08/16/2017 Discharge Date:08/16/2017 06:35 PM CM D/C Disposition:Home, Routine, Self-Care ADT D/C Disposition:Home, Routine, Self-Care Projected Discharge Date:08/16/2017 12:00 AM Transportation at D/C: Discharge Delay Reason: Follow-Up Date:08/16/2017 12:00 AM Discharge Slot: Final Diagnosis: Placement Information Patient Contact Information Contact Name:MAUREEN Relationship:Daughter Address: Work Phone: City: [place] Phone: State/[place] Code: Email: Financial Information Financial Class:Self-Pay Primary Plan Desc:[employer] Primary Plan Number:[id number] Secondary Plan Desc: Secondary Plan Number: Assessment Information [facility] CM Progress Note CM Note CM Note Notes: Pt. is a 71-year-old woman admitted with a fever, pleural effusion, r/o PNA, and tachypnea. Pt. on home O2, followed at [facility] for lung disease. Pt. is originally from [place] and speaks Turkmen per report. SWer met w/ daughter Ml briefly today. Ml speaks fluent [place] Sor[place]. Ml states her mother has a green card, but is not yet eligible for Medicare or Medicaid. On CICP and WE CARE programs. No PT/OT ordered. Anticipate independent d/c when ready. CM available if d/c POC changes. Date Signed: 08/16/2017 11:57 AM Electronically Signed By:Marline Stokes LCSW Intervention Information
== END 2017-08-16 18:35 | disposition home or self-care (01) | DRG 196 ==
LOC: OBSVTOIN 20:18 → F2N 23:13 → F2W 08-15 10:05
PROVIDERS: ADMIT Hospitalist; ATTEND Student in an Organized Health Care Education/Training Program
PROC: 0W993ZZ Drainage of Right Pleural Cavity, Percutaneous Approach (ICD-10-PCS; principal; 2017-08-14)
DX: J84.9 Interstitial pulmonary disease, unspecified (principal); J91.8 Pleural effusion in other conditions classified elsewhere; J96.20 Acute and chronic respiratory failure, unspecified whether with hypoxia or hypercapnia; J18.9 Pneumonia, unspecified organism; E87.1 Hypo-osmolality and hyponatremia; N17.9 Acute kidney failure, unspecified; D64.9 Anemia, unspecified; I11.0 Hypertensive heart disease with heart failure; I50.9 Heart failure, unspecified; M35.00 Sjogren syndrome, unspecified; E87.5 Hyperkalemia; Z96.642 Presence of left artificial hip joint
CPT/HCPCS: 96365; J1650; J1956; Q9967

== ENCOUNTER → 2017-08-27 | Outpatient (CLI) | payer OTHER | LOC: FIMAGING 14:18 | PROVIDERS: ATTEND Internal Medicine Critical Care Medicine | DX: J90 Pleural effusion, not elsewhere classified (principal); R91.8 Other nonspecific abnormal finding of lung field ==

== ENCOUNTER → 2017-10-08 | Outpatient (CLI) | payer OTHER | LOC: FIMAGING 15:08 | PROVIDERS: ATTEND Family Medicine | DX: Z12.31 Encounter for screening mammogram for malignant neoplasm of breast (principal); Z80.3 Family history of malignant neoplasm of breast | CPT/HCPCS: G0202 ==